=== PATIENT | male | born 1975 | race Caucasian/White ===

== ENCOUNTER 2016-11-07 17:43 | Emergency (ER) | payer SELFPAY ==
[~2016-11-07] VITALS: Ht 180.3 cm; Wt 63.6 kg
[2016-11-07] MEDS ORDERED: IBUPROFEN 800 MG TABLET PO ONE (19:00)
[2016-11-07] MEDS ORDERED: ACETAMINOPHEN 500 MG TABLET PO ONE (19:00)
[2016-11-07 19:58] VITALS: BP 129/70
== END 2016-11-07 20:00 | disposition home or self-care (01) ==
LOC: EMS 17:44
DX: R07.9 Chest pain, unspecified (principal)
CPT/HCPCS: 93005; 99285

== ENCOUNTER 2022-12-15 21:11 | Emergency (ER) | payer OTHER ==
[~2022-12-15] VITALS: Ht 172.7 cm; Wt 55.9 kg
[2022-12-15 21:18] VITALS: TEMP 98.1
[2022-12-15] MEDS ORDERED: DiphenhydrAMINE HCL 50 MG CAPSULE PO ONE (23:30)
[2022-12-15] MEDS ORDERED: FAMOTIDINE 20 MG TABLET PO ONE (23:30)
[2022-12-15] MEDS ORDERED: DEXAMETHASONE SOD PHOS 4 MG/ML 5 ML VIAL IM ONE (23:30)
[2022-12-16 00:18] VITALS: BP 118/62; PULSE 67; RESP 17
== END 2022-12-16 00:55 | disposition home or self-care (01) ==
LOC: EMS 21:11
DX: L50.9 Urticaria, unspecified (principal)
CPT/HCPCS: 99283; 96372; J1100